=== PATIENT | male | born 1960 | race Hispanic/Latino ===

== ENCOUNTER 2016-08-29 15:36 | Emergency (ER) | payer OTHER, SELFPAY ==
[2016-08-29] MEDS ORDERED: Adacel (T-DAP) 0.5 ML VIAL ONE (16:04)
[2016-08-29] MEDS ORDERED: Bacitracin Zinc 1 Packet ONE (16:49)
[2016-08-29] MEDS ORDERED: ceFAZolin Sodium 1 GM VIAL ONE (16:54)
[2016-08-29] MEDS ORDERED: HYDROcodone/Acetaminophen 10/325 mg Tablet ONE (17:14)
--- NOTE | 2016-08-29 20:26 | RAD ---
LEFT INDEX FINGER 08/29/16 Two separate fractures are noted. There is one fracture of the distal end of the middle phalanx that extends into the DIP joint with no significant displacement. An additional fracture is present at t he base of the distal phalanx, ulnar side that also extends into the DIP joint. There is no displace ment. IMPRESSION: Fractures of the middle and distal phalanges. POS: HOME
== END 2016-08-29 18:04 | disposition home or self-care (01) ==
LOC: BURERS 15:36
DX: S62.631A Displaced fracture of distal phalanx of left index finger, initial encounter for closed fracture (principal); S62.621A Displaced fracture of middle phalanx of left index finger, initial encounter for closed fracture; S61.211A Laceration without foreign body of left index finger without damage to nail, initial encounter; W31.9XXA Contact with unspecified machinery, initial encounter; Y92.69 Other specified industrial and construction area as the place of occurrence of the external cause; Y99.0 Civilian activity done for income or pay
CPT/HCPCS: 12002; 90471; 90715; 96365; J0690; J2001

== ENCOUNTER 2017-09-24 20:39 | Emergency (ER) | payer SELFPAY ==
[2017-09-25] MEDS ORDERED: Sodium Bicarb 50 MEQ/50 ML Abboject 8.4% SYRINGE ONE ×2 (06:47→06:53)
[2017-09-25] MEDS ORDERED: Calcium Chloride 1 GM/10 ML Abboject SYRINGE ONE (06:53)
[2017-09-25] MEDS ORDERED: Dextrose 50% Abboject 50 ML SYRINGE ONE (06:53)
[2017-09-25] MEDS ORDERED: EPINEPHrine 1 MG/10 ML Abboject SYRINGE ONE (06:54)
== END 2017-09-24 22:25 | disposition expired ==
LOC: BURERS 20:39
DX: I46.9 Cardiac arrest, cause unspecified (principal); I49.01 Ventricular fibrillation
CPT/HCPCS: 99285; J0171